=== PATIENT | female | born 1940 ===

== ENCOUNTER 2020-08-23 02:58 | Inpatient (IN) | payer MEDICARE ==
[~2020-08-23] VITALS: Ht 162.6 cm; Wt 60.2 kg
--- NOTE | 2020-08-23 02:58 | NUR ---
INITIAL PT CONTACT. PT PRESENTS TO ED A TRANSFER FROM [facility] WITH A C/O WEAKNESS AND GLF. PT STATES "I WAS OUT WALKING AROUND THE POND AND ALL OF A SUDDEN I GOT THIS WEAKNESS IN MY LEGS AND FELL, SO I HAD TO BE SEEN IN THE ER. I JUST GOT MY COVID VACCINE YESTERDAY AND THEN THIS ALL HAPPENS. I NORMALLY USE A CANE TO WALK AROUND." PT GIVEN 1G OF TYLENOL AND ORAL POTASSIUM AT TRANSFERING FACILITY. PT REPORTS IMPROVED SENSE OF WEAKNESS SINCE ONSET OF SYMPTOMS. NO ADDITIONAL COMPLAINTS AT THIS TIME. CALL LIGHT AND PERSONAL BELONGINGS WITHIN REACH. ERP AT BEDSIDE.
[2020-08-23] MEDS ORDERED: CLON0.1T22 PO (03:23)
[2020-08-23] MEDS ORDERED: ENAL20TA9 PO (03:23)
[2020-08-23 03:52] LABS: BASOPHILS % (AUTO) 1 % (0-1); EOSINOPHILS % (AUTO) 0 % (1-7); LYMPHOCYTES % (AUTO) 15 % (22-44); MEAN CORPUSCULAR HEMOGLOBIN 31.2 pg (27.0-34.8); MEAN CORPUSCULAR HGB CONC 34.4 g/dL (32.4-35.8); MEAN PLATELET VOLUME 7.1 fL (7.4-10.4); MONOCYTES % (AUTO) 12 % (2-9); NEUTROPHILS % (AUTO) 72 % (42-75); PLATELET COUNT 251 x10^3/uL (130-400); RED BLOOD COUNT 4.69 x10^6/uL (3.82-5.3); RED CELL DISTRIBUTION WIDTH 13.2 % (9.6-15.2)
[2020-08-23 03:57] LABS: MD NO
[2020-08-23 04:03] LABS: ALBUMIN 3.3 g/dL (3.4-5.0); ANION GAP 8 mmol/L (5-15); CALCIUM 8.8 mg/dL (8.5-10.1); CHLORIDE 101 mmol/L (98-107)
--- NOTE | 2020-08-23 04:03 | NUR ---
PT SITTING UPRIGHT ON [facility]. PT DENIES ANY NEEDS AT THIS TIME. CALL LIGHT AND BELONGINGS WITHIN REACH
[2020-08-23 04:06] LABS: ALANINE AMINOTRANSFERASE 21 U/L (12-78); ALKALINE PHOSPHATASE 118 U/L (45-117); BILIRUBIN,TOTAL 0.7 mg/dL (0.2-1.0); TOTAL PROTEIN 7.6 g/dL (6.4-8.2)
--- NOTE | 2020-08-23 04:47 | NUR ---
Pt to be admitted to TELE2, room 421. Report called to NICK.
[2020-08-23 05:40] VITALS: BP_SYST 133; BP_SYST 137; BP_SYST 149; BP_DIAS 77; BP_DIAS 78
[2020-08-23] MEDS ORDERED: POTASSIUM CHLORIDE 20 MEQ TAB.ER.PRT PO ONE (06:00)
[2020-08-23] MEDS ORDERED: ONDANSETRON 2MG/ML, 2ML IVPush PRN (06:00)
[2020-08-23 07:15] VITALS: BP 159/81
[2020-08-23] MEDS: ENALAPRIL 20MG TABLET PO SCH (09:03)
[2020-08-23 12:45] VITALS: BP 134/78
[2020-08-23 20:18] VITALS: BP 133/69
[2020-08-24 01:16] VITALS: BP 118/66
[2020-08-24 07:46] VITALS: BP 149/78
[2020-08-24] MEDS: ENALAPRIL 20MG TABLET PO SCH (09:03)
[2020-08-24] MEDS: ACETAMINOPHEN 325 MG TABLET PO PRN (11:34)
[2020-08-24 13:42] VITALS: BP 118/60
[2020-08-24 19:41] VITALS: BP 176/79
[2020-08-24 21:00] VITALS: BP 188/93
[2020-08-25] VITALS (12 sets, daily range): BP systolic 149–194; BP diastolic 68–92
[2020-08-25 06:00] LABS: BASOPHILS % (AUTO) 0 % (0-1); EOSINOPHILS % (AUTO) 6 % (1-7); LYMPHOCYTES % (AUTO) 32 % (22-44); MEAN CORPUSCULAR HEMOGLOBIN 31.5 pg (27.0-34.8); MEAN CORPUSCULAR HGB CONC 34.8 g/dL (32.4-35.8); MEAN PLATELET VOLUME 7.8 fL (7.4-10.4); MONOCYTES % (AUTO) 13 % (2-9); NEUTROPHILS % (AUTO) 49 % (42-75); PLATELET COUNT 242 x10^3/uL (130-400); RED BLOOD COUNT 4.71 x10^6/uL (3.82-5.3); RED CELL DISTRIBUTION WIDTH 13.4 % (9.6-15.2)
[2020-08-25 06:16] LABS: MD NO
[2020-08-25 06:24] LABS: ALBUMIN 3.2 g/dL (3.4-5.0); CHLORIDE 104 mmol/L (98-107)
[2020-08-25 06:31] LABS: ALANINE AMINOTRANSFERASE 21 U/L (12-78); ALKALINE PHOSPHATASE 106 U/L (45-117); ANION GAP 8 mmol/L (5-15); BILIRUBIN,TOTAL 0.5 mg/dL (0.2-1.0); CALCIUM 8.6 mg/dL (8.5-10.1); CREATININE 0.62 mg/dL (0.55-1.02); TOTAL PROTEIN 7.2 g/dL (6.4-8.2)
[2020-08-25] MEDS ORDERED: POTASSIUM CHLORIDE 20 MEQ TAB.ER.PRT PO ONE (08:00)
[2020-08-25] MEDS: ENALAPRIL 20MG TABLET PO SCH ×2 (08:08→21:16)
[2020-08-25] MEDS: ACETAMINOPHEN 325 MG TABLET PO PRN ×3 (08:16→21:18)
[2020-08-25] MEDS ORDERED: CLON0.1T22 PO (11:25)
[2020-08-25] MEDS ORDERED: ENALAPRILAT 1.25 MG/ML, 1ML ONE ×3 (11:30→21:09)
[2020-08-25] MEDS: ENALAPRILAT 1.25 MG/ML, 2ML IVPush PRN ×2 (11:34→12:39)
[2020-08-26] VITALS (7 sets, daily range): BP systolic 128–164; BP diastolic 69–85
[2020-08-26 08:07] LABS: ANION GAP 6 mmol/L (5-15); CALCIUM 9.1 mg/dL (8.5-10.1); CHLORIDE 100 mmol/L (98-107); CREATININE 0.64 mg/dL (0.55-1.02)
[2020-08-26] MEDS: ENALAPRIL 20MG TABLET PO SCH (08:31)
[2020-08-26] MEDS ORDERED: POTASSIUM CHLORIDE 20 MEQ TAB.ER.PRT PO ONE (09:30)
[2020-08-26] MEDS ORDERED: HYDR-3341 PO (13:58)
[2020-08-26] MEDS: ACETAMINOPHEN 325 MG TABLET PO PRN (14:04)
== END 2020-08-26 15:10 | disposition home health service (06) | DRG 554 ==
LOC: ED 03:28 → EDIP 03:54 → INTOOBSV 03:54 → 4WST 05:17 → OBSVTOIN 08-25 14:13 → DCLOUNGE 08-26 15:00
PROVIDERS: ADMIT Family Medicine; ATTEND Hospitalist
DX: M16.0 Bilateral primary osteoarthritis of hip (principal); R32 Unspecified urinary incontinence; E11.9 Type 2 diabetes mellitus without complications; I10 Essential (primary) hypertension; Z53.20 Procedure and treatment not carried out because of patient's decision for unspecified reasons; W18.2XXA Fall in (into) shower or empty bathtub, initial encounter; Z90.710 Acquired absence of both cervix and uterus; Z79.899 Other long term (current) drug therapy; Y93.E1 Activity, personal bathing and showering; Y92.89 Other specified places as the place of occurrence of the external cause; Y99.8 Other external cause status
CPT/HCPCS: 36415; 70450; 71045; 80048; 80053; 83036; 83735; 84443; 85025; 93005; 93306; 99285; G0378